=== PATIENT | male | born 1995 | race Caucasian/White ===

== ENCOUNTER 2017-11-11 20:31 | Emergency (ER) | payer BC ==
--- NOTE | 2017-11-11 21:21 | EDM.PDOC ---
ED HPI GENERAL MEDICAL PROBLEM - General Chief Complaint: General Stated Complaint: EAR BLEEDING Time Seen by Provider: 11/11/17 21:00 Source of Information: Reports: Patient History Limitations: Reports: No Limitations - History of Present Illness INITIAL COMMENTS - FREE TEXT/NARRATIVE: Neri is an otherwise healthy 22-year-old male who presents to the emergency department today with for concerns of bleeding from his left ear. Patient had keloids removed surgically yesterday and has had 3 episodes of bleeding since that time. All of the episodes patient has experienced have been when he has been lying down. Patient arrives here with no active bleeding. Patient is concerned about infection. He denies any fever, chills, nausea, vomiting, dizziness or lightheadedness. Onset: Gradual Duration: Day(s): (1.5) - Related Data Allergies Allergy/AdvReac Type Severity Reaction Status Date / Time No Known Allergies Allergy Verified 11/11/17 20:46 Home Meds: Home Meds Dexameth/Neomycin/Polymyxin B [Maxitrol Ophth Susp] 11/11/17 [History] Past Medical History HEENT History: Reports: None - Past Surgical History HEENT Surgical History: Reports: Oral Surgery Social & Family History - Family History Family Medical History: Noncontributory - Caffeine Use Caffeine Use: Reports: Energy Drinks, Soda ED ROS GENERAL - Review of Systems Review Of Systems: ROS reveals no pertinent complaints other than HPI. ED EXAM, GENERAL - Physical Exam Exam: See Below Exam Limited By: No Limitations General Appearance: Alert, WD/WN, No Apparent Distress Ear Exam: Right Ear: Other (Right ear has closed incisions, well approximated, very small amounts of dried blood around the sutures, there is no active bleeding. There is very mild erythema to the tip of the ear with no purulent drainage and mild warmth) Nose: Normal Inspection Throat/Mouth: Normal Oropharynx Respiratory/Chest: No Respiratory Distress Cardiovascular: Regular Rate, Rhythm Extremities: Normal Inspection Neurological: Alert, Oriented Psychiatric: Normal Affect, Normal Mood Lymphatic: No Adenopathy Course - Vital Signs Last Recorded V/S: Last Vital Signs Temp 35.4 C 11/11/17 20:51 Pulse 99 11/11/17 20:51 Resp 16 11/11/17 20:51 BP 140/69 11/11/17 20:51 Pulse Ox 94 L 11/11/17 20:51 Neri is an otherwise healthy 22-year-old male who presents to the emergency department today with concerns of bleeding from his right ear. These refer to history of present illness and focused exam. Patient has no active bleeding on exam. Patient's wound looks fairly good, there is mild erythema. I did discuss with patient that likely when he lays down because of increased pressure this is what is attributing to his bleeding is also likely some irritation from rubbing his ear on the pillow/bedding. I did recommend that patient apply bacitracin to his ear as well as a dressing when he goes to sleep. Patient is very concerned about infection and given the mild erythema I am going to go ahead and start him on Keflex. Patient has been taking ibuprofen and Tylenol for pain which has been effective. Patient can continue to use this at home. Ice was recommended to here as well. Patient should follow up in clinic as previously recommended, reasons to return to the emergency department were discussed in detail. Patient is agreeable to plan of care and discharged in stable condition. Departure - Departure Time of Disposition: 21:30 Disposition: Home, Self-Care 01 Condition: Good Clinical Impression: Bleeding from right ear - Discharge Information Instructions: Sutured Wound Care Referrals: Isidro Chun MD [Primary Care Provider] - Forms: ED Department Discharge Additional Instructions: You can start the Keflex tonight. I would recommend Bacitracin and bandaging the ear prior to lying down.
== END 2017-11-11 21:59 | disposition home or self-care (01) ==
LOC: JP.ED 20:31
DX: H92.21 Otorrhagia, right ear (principal)
CPT/HCPCS: 99283